=== PATIENT | female | born 1960 | race Caucasian/White ===

== ENCOUNTER 2016-11-03 08:47 | Outpatient (CLI) | payer BC ==
--- NOTE | 2016-11-03 13:54 | DIAGNOSTIC IMAGING REPORT ---
PROCEDURE: CT THORAX ABD PELVIS W/CONT INDICATION: OVARIAN CA TECHNIQUE: 125 ml of Isovue 300 injected intravenously and axial images were obtained of the entire thorax, abdomen, and pelvis with sagittal and coronal reformations. The patient began to sneeze after the IV contrast injection but did not experience any shortness of breath. The patient was given 25 mg Benadryl IV and was sent home in her usual state of health. COMPARISON: None. FINDINGS: THORAX: Calcified right middle lobe granuloma with calcified subcarinal lymph node. Lungs are otherwise clear. Normal airways. No effusion. Normal thoracic aorta. Heart size is normal. No suspicious osseous lesions. ABDOMEN: The liver, gallbladder, adrenal glands, spleen, pancreas, kidneys, retroperitoneal vasculature and ureters appear normal. Normal aorta. Periaortic surgical clips. Small hiatal hernia. Nonspecific bowel gas pattern. No free fluid. Moderate L4-5 degenerative changes. PELVIS: Hysterectomy. Normal appendix. There is no pelvic mass, free fluid or inflammatory changes. No suspicious osseous lesions. IMPRESSION: 1. Hysterectomy. No evidence of metastatic disease 2. Old granulomatous disease 3. Small hiatal hernia All CT scans at this facility use dose modulation, iterative reconstruction, and/or weight-based dosing when appropriate to reduce radiation dose to as low as reasonably achievable.
== END 2016-11-03 23:00 ==
LOC: CT SRH 08:47
DX: Z85.43 Personal history of malignant neoplasm of ovary (principal); Z90.710 Acquired absence of both cervix and uterus